=== PATIENT | female | born 1950 | race Caucasian/White ===

== ENCOUNTER 2017-08-19 18:10 | Emergency (ER) | payer MEDICARE ==
[~2017-08-19] VITALS: Ht 162.6 cm; Wt 70.1 kg
[~2017-08-19 18:10] MED LIST: ASPI-1053 PO; DULO-31 PO; KEPPRA PO; METO-539 PO; PRAV10TA PO
[2017-08-19] MEDS ORDERED: FISH12002 PO (19:26)
[2017-08-19] MEDS ORDERED: MULT-38 PO (19:26)
[2017-08-19] MEDS ORDERED: normal saline 1000ML IV soln IVB ONE (19:45)
[2017-08-19] MEDS ORDERED: ondansetron/PF 4mg/2ml inj IV ONE (19:45)
[2017-08-19] MEDS ORDERED: famotidine/PF 10 mg/ml inj IV ONE (19:45)
[2017-08-19 20:03] LABS: BASOPHILS % (AUTO) 0.4 % (0-1); EOSINOPHILS # (AUTO) 0.4 X10'3 (0-0.9); EOSINOPHILS % (AUTO) 4.5 % (0-6); HEMATOCRIT 38.7 % (35.0-45.0); HEMOGLOBIN 13.8 g/dl (12.0-16.0); LYMPHOCYTES % (AUTO) 23.2 % (21-51); MEAN CORPUSCULAR HEMOGLOBIN 31.1 PG (27.0-31.0); MEAN CORPUSCULAR HGB CONC 35.7 % (33.0-36.5); MEAN CORPUSCULAR VOLUME 87.3 FL (78-98); MEAN PLATELET VOLUME 8.1 FL (7.4-10.4); MONOCYTES # (AUTO) 0.6 X10'3 (0-0.9); MONOCYTES % (AUTO) 6.6 % (2-12); NEUTROPHILS # (AUTO) 5.8 X10'3 (1.8-7.7); NEUTROPHILS % (AUTO) 65.3 % (42-75); PLATELET COUNT 247 X10'3 (140-440); RED BLOOD COUNT 4.44 X10'6 (4.20-5.60); RED CELL DISTRIBUTION WIDTH 12.9 % (11.5-14.5); WHITE BLOOD COUNT 8.8 X10'3 (4.5-11.0)
[2017-08-19 20:14] LABS: ALANINE AMINOTRANSFERASE 21 U/L (12-78); ALBUMIN 3.6 G/DL (3.4-5.0); ALBUMIN/GLOBULIN RATIO 1.3 (1.1-1.5); ALKALINE PHOSPHATASE 105 IU/L (46-116); ANION GAP 7 (8-16); ASPARTATE AMINO TRANSFERASE 18 U/L (10-37); BILIRUBIN,TOTAL 0.4 MG/DL (0.1-1.0); BLOOD UREA NITROGEN 25 MG/DL (7-18); BUN/CREATININE RATIO 35.7 (6.6-38.0); CALCIUM 8.7 MG/DL (8.5-10.1); CHLORIDE 109 MMOL/L (99-107); GLUCOSE 105 MG/DL (70-104); LIPASE 139 U/L (73-393); SODIUM 141 MMOL/L (135-145); TOTAL CARBON DIOXIDE 25.4 MMOL/L (24-32); TOTAL PROTEIN 6.3 G/DL (6.4-8.2); eGFR 84 ML/MIN
[2017-08-19 20:19] LABS: POTASSIUM 3.9 MMOL/L (3.5-5.1)
[2017-08-19 21:09] LABS: CLARITY,URINE Clear (Clear); COLOR,URINE Yellow (Yellow); GLUCOSE, URINE Negative (Neg); KETONES,URINE Negative (Neg); LEUKOCYTE ESTERASE ,URINE Moderate (Neg); NITRITES, URINE Negative (Neg); OCCULT BLOOD,URINE Negative (Neg); PROTEIN,URINE Negative (Neg)
[2017-08-19 21:10] LABS: UA COLLECTION TYPE CLN CATCH MIDSTREAM
[2017-08-19 21:22] LABS: BACTERIA,URINE 2+ /HPF (Neg); MUCUS STRANDS NONE SEEN /LPF (Neg); RBC,URINE 0-2 /HPF (0-2); SQUAMOUS EPITHELIAL CELL,UR MODERATE /LPF (FEW)
[2017-08-19] MEDS ORDERED: GOLYS PO (21:42)
[2017-08-19] MEDS ORDERED: magnesium citrate 296ml oral solution PO ONE (21:45)
[2017-08-19 23:08] VITALS: BP 147/75
== END 2017-08-19 23:11 | disposition home or self-care (01) ==
LOC: ER 18:10
DX: K59.00 Constipation, unspecified (principal); R33.9 Retention of urine, unspecified; I25.10 Atherosclerotic heart disease of native coronary artery without angina pectoris; I10 Essential (primary) hypertension; Z87.891 Personal history of nicotine dependence; Z88.6 Allergy status to analgesic agent; Z79.82 Long term (current) use of aspirin; Z95.1 Presence of aortocoronary bypass graft
CPT/HCPCS: 36415; 51702; 71045; 74018; 80053; 81001; 83690; 84484; 85025; 87088; 96361; 96374; 96375; 99285; A4315; J2405; J3490; J7030

== ENCOUNTER 2017-08-20 18:39 | Emergency (ER) | payer MEDICARE ==
[~2017-08-20] VITALS: Ht 162.6 cm; Wt 69.0 kg
[~2017-08-20 18:39] MED LIST changes: -DULO-31 PO; +FISH12002 PO; +GOLYS PO; +MULT-38 PO
[2017-08-21 00:26] LABS: CLARITY,URINE CLOUDY (Clear); COLOR,URINE RED (Yellow); GLUCOSE, URINE NEGATIVE (Neg); KETONES,URINE NEGATIVE (Neg); LEUKOCYTE ESTERASE ,URINE TRACE (Neg); NITRITES, URINE NEGATIVE (Neg); OCCULT BLOOD,URINE LARGE (Neg); PH,URINE 8.5 (4.8-8.0); PROTEIN,URINE 100 mg/dl (Neg)
[2017-08-21 00:44] LABS: UA COLLECTION TYPE CLN CATCH MIDSTREAM
[2017-08-21 00:53] LABS: BACTERIA,URINE FEW /HPF (Neg); MUCUS STRANDS FEW /LPF (Neg); RBC,URINE TNTC /HPF (0-2); SQUAMOUS EPITHELIAL CELL,UR FEW /LPF (FEW)
[2017-08-21 00:54] LABS: HYALINE CASTS 0-3 /LPF (NEGATIVE)
[2017-08-21 01:03] VITALS: BP 126/66
== END 2017-08-21 01:05 | disposition home or self-care (01) ==
LOC: ER 18:40
DX: K59.00 Constipation, unspecified (principal); R33.9 Retention of urine, unspecified; I25.10 Atherosclerotic heart disease of native coronary artery without angina pectoris; I10 Essential (primary) hypertension; Z90.710 Acquired absence of both cervix and uterus; Z95.1 Presence of aortocoronary bypass graft; Z88.5 Allergy status to narcotic agent; Z79.82 Long term (current) use of aspirin; Z79.899 Other long term (current) drug therapy
CPT/HCPCS: 81001; 87088; 99284

== ENCOUNTER 2019-05-26 09:20 | Inpatient (IN) | payer MEDICARE ==
[~2019-05-26] VITALS: Ht 162.6 cm; Wt 67.8 kg
--- NOTE | 2019-05-26 10:00 | NUR ---
5 PIV ATTEMPTS BY 2 DIFFERENT NURSES. ASKED A 3RF RN TO ATTEMPT FOR PIV ACCESS
[2019-05-26 10:09] LABS: BASOPHILS # (AUTO) 0.1 X10'3 (0-0.2); BASOPHILS % (AUTO) 0.4 % (0-1); EOSINOPHILS % (AUTO) 0.1 % (0-6); MONOCYTES # (AUTO) 0.8 X10'3 (0-0.9)
[2019-05-26 10:11] LABS: HEMATOCRIT 42.6 % (35.0-45.0); HEMOGLOBIN 15.1 g/dl (12.0-16.0); LYMPHOCYTES # (AUTO) 0.9 X10'3 (1.1-4.8); LYMPHOCYTES % (AUTO) 3.7 % (21-51); MEAN CORPUSCULAR HEMOGLOBIN 30.9 PG (27.0-31.0); MEAN CORPUSCULAR HGB CONC 35.5 g/dL (33.0-36.5); MEAN CORPUSCULAR VOLUME 87.1 FL (78-98); MEAN PLATELET VOLUME 8.3 FL (7.4-10.4); MONOCYTES % (AUTO) 3.3 % (2-12); NEUTROPHILS # (AUTO) 23.7 X10'3 (1.8-7.7); NEUTROPHILS % (AUTO) 92.5 % (42-75); PLATELET COUNT 292 X10'3 (140-440); RED BLOOD COUNT 4.88 X10'6 (4.20-5.60); RED CELL DISTRIBUTION WIDTH 12.7 % (11.5-14.5)
[2019-05-26] MEDS ORDERED: normal saline 1000ML IV soln IVB ONE (10:15)
[2019-05-26] MEDS ORDERED: morphine 4 MG/ML inj SYRINge IV ONE ×2 (10:15→13:35)
[2019-05-26] MEDS ORDERED: ondansetron/PF 4mg/2ml inj IV ONE (10:15)
[2019-05-26 10:19] LABS: CLARITY,URINE CLEAR (Clear); COLOR,URINE YELLOW (Yellow); GLUCOSE, URINE NEGATIVE (Neg); KETONES,URINE NEGATIVE (Neg); LEUKOCYTE ESTERASE ,URINE NEGATIVE (Neg); NITRITES, URINE NEGATIVE (Neg); OCCULT BLOOD,URINE SMALL (Neg); PH,URINE 5.5 (4.8-8.0); PROTEIN,URINE NEGATIVE (Neg); UROBILINOGEN,URINE 0.2 E.U/dL (0.2-1.0)
[2019-05-26 10:20] LABS: UA COLLECTION TYPE CLN CATCH MIDSTREAM
[2019-05-26 10:25] LABS: BACTERIA,URINE FEW /HPF (Neg); MUCUS STRANDS NONE SEEN /LPF (Neg); RBC,URINE 0-2 /HPF (0-2); SQUAMOUS EPITHELIAL CELL,UR FEW /LPF (FEW); WBC,URINE 0-4 /HPF (0-4)
[2019-05-26 10:30] LABS: ALANINE AMINOTRANSFERASE 30 U/L (12-78); ALBUMIN 4.2 G/DL (3.4-5.0); ALBUMIN/GLOBULIN RATIO 1.3 (1.1-1.5); ALKALINE PHOSPHATASE 91 IU/L (46-116); AMYLASE 63 U/L (25-115); ANION GAP 10 (8-16); BLOOD UREA NITROGEN 18 MG/DL (7-18); BUN/CREATININE RATIO 26.5 (6.6-38.0); CHLORIDE 104 MMOL/L (99-107); CREATININE 0.68 MG/DL (0.40-0.90); GLUCOSE 103 MG/DL (70-104); LIPASE 293 U/L (73-393); SODIUM 138 MMOL/L (135-145); TOTAL CARBON DIOXIDE 24.3 MMOL/L (24-32); TOTAL PROTEIN 7.4 G/DL (6.4-8.2); eGFR 86 ML/MIN
[2019-05-26 10:31] LABS: ASPARTATE AMINO TRANSFERASE 38 U/L (10-37); POTASSIUM 4.2 MMOL/L (3.5-5.1)
[2019-05-26 10:35] LABS: WHITE BLOOD COUNT 25.7 X10'3 (4.5-11.0)
[2019-05-26 10:36] LABS: TOTAL CELLS COUNTED 100
[2019-05-26 10:37] LABS: PLATELET ESTIMATE NORMAL
--- NOTE | 2019-05-26 10:41 | NUR ---
I WENT TO FIND LOLI BRITO IN FAST TRACK: PATIENT STILL VERY NAUSEATED AND ACTUALLY SQUIRMING IN THE BED. ORDERS RECEIVED
[2019-05-26] MEDS ORDERED: normal saline 1000ML IV soln IV ONE (10:45)
[2019-05-26] MEDS ORDERED: diphenhydrAMINE 50 mg/ml inj IV ONE (10:45)
[2019-05-26] MEDS ORDERED: piperacillin/tazo 3.375gm/50ml 50 ML IV ONE (10:45)
[2019-05-26] MEDS ORDERED: proCHLORperazine 10 MG/2 ml inj IV ONE (10:45)
--- NOTE | 2019-05-26 11:04 | NUR ---
to ct scan
[2019-05-26] MEDS ORDERED: PREMERIN VG (12:44)
[2019-05-26] MEDS ORDERED: TRAZ-251 PO (12:44)
[2019-05-26] MEDS ORDERED: magnesium 2GM in 50ml NS 50 ML IV PRN (13:50)
[2019-05-26] MEDS ORDERED: ondansetron/PF 4mg/2ml inj IV PRN (13:50)
[2019-05-26] MEDS ORDERED: HYDROcodone/acetaminophen 10/325mg tab PO PRN (13:50)
[2019-05-26] MEDS ORDERED: mag hydrox/Alum hydrox/simeth 30ml oral suspension PO PRN (13:50)
[2019-05-26] MEDS ORDERED: HYDROcodone/acetaminophen 5mg/325mg tablet PO PRN (13:50)
[2019-05-26] MEDS: K and/or MAG REPLACEMENT MC SCH (13:50)
[2019-05-26] MEDS ORDERED: potassium Cl 20 mEq SR tablet PO PRN ×2 (13:50)
[2019-05-26] MEDS ORDERED: bisacodyl 10mg suppository rectal RC PRN (13:50)
[2019-05-26] MEDS ORDERED: magnesium hydroxide 30ml (MOM) UD suspension PO PRN (13:50)
[2019-05-26] MEDS ORDERED: magnesium Cl slow-release 64mg tablet PO PRN (13:50)
[2019-05-26] MEDS ORDERED: magnesium 4gm in 100ml NS 100 ML IV PRN (13:50)
[2019-05-26] MEDS ORDERED: acetaminophen 650mg rectal suppository RC PRN (13:50)
[2019-05-26] MEDS ORDERED: potassium CL 10mEq/100ml bag 100 ML IV PRN ×2 (13:50)
[2019-05-26] MEDS ORDERED: diphenhydrAMINE 25mg capsule PO PRN (13:50)
[2019-05-26] MEDS ORDERED: acetaminophen 325mg tablet PO PRN ×2 (13:50)
[2019-05-26] MEDS ORDERED: metoclopramide 5 mg/ml inj IV PRN (13:50)
[2019-05-26] MEDS ORDERED: morphine 2 MG/ML inj. syringe IV PRN (13:50)
--- NOTE | 2019-05-26 13:50 | NUR ---
patient asking for the morphine that the dr ordered. no morphine was ordered. I spoke with LOLI harris and order received for 3 mg morphine
[2019-05-26] MEDS: dextrose 5%-normal saline 1,000 ML IV SCH (14:14)
--- NOTE | 2019-05-26 14:15 | NUR ---
Patient in room ED 9. I have received report from Hyacinth in ED and had the opportunity to ask questions and assume patient care.
--- NOTE | 2019-05-26 14:28 | NUR ---
pt arrived on the floor, placed in 5639M, tucked in
[2019-05-26] MEDS ORDERED: metroNIDAZOLE-Flagyl 500mg/NS 100 ML IV SCH ×2 (14:50→15:23)
[2019-05-26 15:28] VITALS: BP 117/49
[2019-05-26] MEDS: levoFLOXACIN-Levaquin 750MG/D5 150 ML IV SCH (15:36)
[2019-05-26] MEDS ORDERED: PRAV20TA4 PO (15:58)
[2019-05-26] MEDS: metroNIDAZOLE-Flagyl 500mg/NS 100 ML IV SCH (17:18)
[2019-05-26] MEDS: morphine 2 MG/ML inj. syringe IV PRN ×2 (17:19→21:15)
[2019-05-26 18:00] VITALS: BP 106/51
--- NOTE | 2019-05-26 18:22 | NUR ---
Problems reprioritized. Patient report given, questions answered & plan of care reviewed with Fam.
[2019-05-26] MEDS: docusate sod 100mg capsule PO SCH (20:47)
[2019-05-26] MEDS: heparin, porcine 5000 units/ml vial SQ SCH (20:47)
[2019-05-26] MEDS: traZODone 50mg tablet PO SCH (20:48)
[2019-05-26] MEDS ORDERED: temazepam 15mg capsule PO PRN (21:00)
[2019-05-26] MEDS: diatr meglu/diatrizoate 30ml oral sol.-(3 dose) bottle PO SCH (21:15)
[2019-05-26 22:00] VITALS: BP 98/40
[2019-05-26] MEDS ORDERED: pantoprazole 40 MG vial IV ONE (23:40)
[2019-05-27] MEDS: metroNIDAZOLE-Flagyl 500mg/NS 100 ML IV SCH ×3 (00:14→15:54)
[2019-05-27] MEDS: morphine 2 MG/ML inj. syringe IV PRN ×4 (03:33→15:54)
[2019-05-27] MEDS: dextrose 5%-normal saline 1,000 ML IV SCH ×3 (03:43→17:52)
--- NOTE | 2019-05-27 06:00 | NUR ---
Patient in room ORTHO 4015. I have received report from Fam and had the opportunity to ask questions and assume patient care.
--- NOTE | 2019-05-27 06:09 | NUR ---
Problems reprioritized. Patient report given, questions answered & plan of care reviewed with Chantelle MARADIAGA.
[2019-05-27 06:24] LABS: BASOPHILS % (AUTO) 0.2 % (0-1); EOSINOPHILS # (AUTO) 0.1 X10'3 (0-0.9); EOSINOPHILS % (AUTO) 0.4 % (0-6); HEMATOCRIT 32.9 % (35.0-45.0); HEMOGLOBIN 11.7 g/dl (12.0-16.0); LYMPHOCYTES # (AUTO) 1.2 X10'3 (1.1-4.8); LYMPHOCYTES % (AUTO) 10.2 % (21-51); MEAN CORPUSCULAR HEMOGLOBIN 31.4 PG (27.0-31.0); MEAN CORPUSCULAR HGB CONC 35.5 g/dL (33.0-36.5); MEAN CORPUSCULAR VOLUME 88.3 FL (78-98); MONOCYTES # (AUTO) 0.8 X10'3 (0-0.9); MONOCYTES % (AUTO) 6.2 % (2-12); NEUTROPHILS # (AUTO) 10.1 X10'3 (1.8-7.7); PLATELET COUNT 178 X10'3 (140-440); RED BLOOD COUNT 3.73 X10'6 (4.20-5.60); RED CELL DISTRIBUTION WIDTH 12.6 % (11.5-14.5); WHITE BLOOD COUNT 12.2 X10'3 (4.5-11.0)
[2019-05-27 06:33] VITALS: BP 100/47
[2019-05-27 06:35] LABS: ALANINE AMINOTRANSFERASE 17 U/L (12-78); ALBUMIN 2.7 G/DL (3.4-5.0); ALKALINE PHOSPHATASE 58 IU/L (46-116); ANION GAP 8 (8-16); ASPARTATE AMINO TRANSFERASE 17 U/L (10-37); BILIRUBIN,TOTAL 1.1 MG/DL (0.1-1.0); BLOOD UREA NITROGEN 12 MG/DL (7-18); BUN/CREATININE RATIO 18.5 (6.6-38.0); CHLORIDE 109 MMOL/L (99-107); CHOL/HDL RATIO 2.7 (0.00-4.99); CHOLESTEROL 94 MG/DL (0-200); CREATININE 0.65 MG/DL (0.40-0.90); GLUCOSE 91 MG/DL (70-104); HDL CHOLESTEROL 35 MG/DL (35-60); LDL CHOLESTEROL 50 MG/DL (50-100); LIPASE 352 U/L (73-393); MAGNESIUM 1.6 MG/DL (1.5-2.4); PHOSPHORUS 2.4 MG/DL (2.3-4.5); POTASSIUM 3.7 MMOL/L (3.5-5.1); SODIUM 140 MMOL/L (135-145); TOTAL CARBON DIOXIDE 23.2 MMOL/L (24-32); TOTAL PROTEIN 5.4 G/DL (6.4-8.2); TRIGLYCERIDES 91 MG/DL (20-135); eGFR > 90 ML/MIN
[2019-05-27] MEDS: diatr meglu/diatrizoate 30ml oral sol.-(3 dose) bottle PO SCH ×2 (07:05→10:37)
[2019-05-27] MEDS: pantoprazole 40 MG vial IV SCH ×2 (07:18→20:29)
[2019-05-27] MEDS ORDERED: PREMERIN VG SCH (08:00)
[2019-05-27] MEDS: docusate sod 100mg capsule PO SCH ×2 (08:00→20:00)
[2019-05-27] MEDS: aspirin 81mg tab.chew PO SCH (08:00)
[2019-05-27] MEDS: multivitamins, therapeutics tablet PO SCH (08:00)
[2019-05-27] MEDS: metoprolol succinate 25mg (24-HOUR) SR. Tablet PO SCH (08:00)
[2019-05-27] MEDS: K and/or MAG REPLACEMENT MC SCH (08:00)
[2019-05-27] MEDS: atorvastatin 20mg tablet PO SCH (08:00)
[2019-05-27] MEDS: OMEGA-3/DHA/EPA/FISH OIL 1 EACH CAPSULE.DR PO SCH (08:00)
[2019-05-27] MEDS: levoFLOXACIN-Levaquin 750MG/D5 150 ML IV SCH (08:30)
[2019-05-27] MEDS: heparin, porcine 5000 units/ml vial SQ SCH ×2 (09:28→20:30)
[2019-05-27 10:00] VITALS: BP 112/58
[2019-05-27] MEDS ORDERED: iohexol 300mg/ml 100ml inj. ONE (10:36)
[2019-05-27 18:00] VITALS: BP 101/53
--- NOTE | 2019-05-27 18:14 | NUR ---
Problems reprioritized. Patient report given, questions answered & plan of care reviewed with Fadia.
--- NOTE | 2019-05-27 19:21 | NUR ---
Spoke with Dr. Rojo r/t pt is NPO for poss duodenal perforation, and is unable to take her HS trazodone. Rec'd one time order for Ativan 0.5mg IV at HS.
[2019-05-27] MEDS ORDERED: LORazepam 2 mg/ml vial IV ONE (19:25)
[2019-05-27] MEDS: traZODone 50mg tablet PO SCH (20:40)
[2019-05-27 22:00] VITALS: BP 114/52
[2019-05-28] MEDS: metroNIDAZOLE-Flagyl 500mg/NS 100 ML IV SCH ×3 (00:34→16:11)
[2019-05-28] MEDS: dextrose 5%-normal saline 1,000 ML IV SCH ×3 (04:03→23:51)
[2019-05-28 06:00] VITALS: BP 122/77
--- NOTE | 2019-05-28 06:27 | NUR ---
REPORT GIVEN TO HIREN LONG.
--- NOTE | 2019-05-28 06:30 | NUR ---
Patient in room ORTHO 4015. I have received report from HIREN Loaiza and had the opportunity to ask questions and assume patient care.
--- NOTE | 2019-05-28 06:30 | NUR ---
Patient in room ORTHO 4015. I have received report from HIREN Loaiza and had the opportunity to ask questions and assume patient care.
[2019-05-28 07:01] LABS: BASOPHILS % (AUTO) 0.2 % (0-1); EOSINOPHILS # (AUTO) 0.2 X10'3 (0-0.9); EOSINOPHILS % (AUTO) 2.6 % (0-6); HEMATOCRIT 32.7 % (35.0-45.0); HEMOGLOBIN 11.8 g/dl (12.0-16.0); LYMPHOCYTES # (AUTO) 0.7 X10'3 (1.1-4.8); LYMPHOCYTES % (AUTO) 8.1 % (21-51); MEAN CORPUSCULAR HEMOGLOBIN 31.6 PG (27.0-31.0); MEAN CORPUSCULAR HGB CONC 36.1 g/dL (33.0-36.5); MEAN CORPUSCULAR VOLUME 87.5 FL (78-98); MEAN PLATELET VOLUME 8.3 FL (7.4-10.4); MONOCYTES # (AUTO) 0.6 X10'3 (0-0.9); MONOCYTES % (AUTO) 6.8 % (2-12); NEUTROPHILS # (AUTO) 7.1 X10'3 (1.8-7.7); NEUTROPHILS % (AUTO) 82.3 % (42-75); PLATELET COUNT 162 X10'3 (140-440); RED BLOOD COUNT 3.73 X10'6 (4.20-5.60); RED CELL DISTRIBUTION WIDTH 12.9 % (11.5-14.5); WHITE BLOOD COUNT 8.6 X10'3 (4.5-11.0)
[2019-05-28 07:12] LABS: ALANINE AMINOTRANSFERASE 14 U/L (12-78); ALBUMIN 2.7 G/DL (3.4-5.0); ALBUMIN/GLOBULIN RATIO 0.9 (1.1-1.5); ALKALINE PHOSPHATASE 60 IU/L (46-116); ANION GAP 9 (8-16); ASPARTATE AMINO TRANSFERASE 14 U/L (10-37); BLOOD UREA NITROGEN 11 MG/DL (7-18); CALCIUM 8.3 MG/DL (8.5-10.1); CHLORIDE 109 MMOL/L (99-107); CREATININE 0.58 MG/DL (0.40-0.90); GLUCOSE 93 MG/DL (70-104); LIPASE 360 U/L (73-393); MAGNESIUM 1.7 MG/DL (1.5-2.4); PHOSPHORUS 2.4 MG/DL (2.3-4.5); POTASSIUM 3.3 MMOL/L (3.5-5.1); SODIUM 140 MMOL/L (135-145); TOTAL CARBON DIOXIDE 22.4 MMOL/L (24-32); TOTAL PROTEIN 5.8 G/DL (6.4-8.2); eGFR > 90 ML/MIN
[2019-05-28] MEDS: pantoprazole 40 MG vial IV SCH ×2 (07:58→20:55)
[2019-05-28] MEDS: morphine 2 MG/ML inj. syringe IV PRN (07:58)
[2019-05-28] MEDS: OMEGA-3/DHA/EPA/FISH OIL 1 EACH CAPSULE.DR PO SCH (08:00)
[2019-05-28] MEDS: multivitamins, therapeutics tablet PO SCH (08:00)
[2019-05-28] MEDS: atorvastatin 20mg tablet PO SCH (08:00)
[2019-05-28] MEDS: metoprolol succinate 25mg (24-HOUR) SR. Tablet PO SCH (08:00)
[2019-05-28] MEDS: K and/or MAG REPLACEMENT MC SCH (08:00)
[2019-05-28] MEDS: docusate sod 100mg capsule PO SCH ×2 (08:00→20:00)
[2019-05-28] MEDS: aspirin 81mg tab.chew PO SCH (08:00)
[2019-05-28] MEDS: heparin, porcine 5000 units/ml vial SQ SCH ×2 (08:06→20:55)
[2019-05-28] MEDS: levoFLOXACIN-Levaquin 750MG/D5 150 ML IV SCH (09:19)
[2019-05-28 10:00] VITALS: BP 113/59
[2019-05-28] MEDS ORDERED: POTASSIUM BICARB 20meq eff tab 20 MEQ TABLET.EFF PO PRN (12:30)
[2019-05-28 12:39] LABS: H PYLORI ANTIBODY NEGATIVE (Neg)
[2019-05-28] MEDS: POTASSIUM BICARB 20meq eff tab 20 MEQ TABLET.EFF PO PRN ×2 (13:19→20:56)
[2019-05-28 18:00] VITALS: BP 140/77
--- NOTE | 2019-05-28 18:35 | NUR ---
Problems reprioritized. Patient report given, questions answered & plan of care reviewed with HIREN Loaiza.
[2019-05-28] MEDS: traZODone 50mg tablet PO SCH (20:56)
[2019-05-28] MEDS: lactobacillus rhamnosus 10,000 MMU CELLS/CAPSULE PO SCH (20:56)
[2019-05-28 22:00] VITALS: BP 136/65
[2019-05-29] MEDS: metroNIDAZOLE-Flagyl 500mg/NS 100 ML IV SCH ×2 (00:36→07:37)
[2019-05-29] MEDS: POTASSIUM BICARB 20meq eff tab 20 MEQ TABLET.EFF PO PRN (00:36)
--- NOTE | 2019-05-29 06:08 | NUR ---
REPORT GIVEN TO HIREN LONG.
--- NOTE | 2019-05-29 06:10 | NUR ---
Patient in room ORTHO 4015. I have received report from HIREN Loaiza and had the opportunity to ask questions and assume patient care.
[2019-05-29 06:45] VITALS: BP 123/65
[2019-05-29 06:56] LABS: BASOPHILS % (AUTO) 0.4 % (0-1); EOSINOPHILS # (AUTO) 0.3 X10'3 (0-0.9); EOSINOPHILS % (AUTO) 4.1 % (0-6); HEMATOCRIT 32.4 % (35.0-45.0); HEMOGLOBIN 11.6 g/dl (12.0-16.0); LYMPHOCYTES # (AUTO) 0.8 X10'3 (1.1-4.8); LYMPHOCYTES % (AUTO) 12.5 % (21-51); MEAN CORPUSCULAR HEMOGLOBIN 31.4 PG (27.0-31.0); MEAN CORPUSCULAR HGB CONC 35.9 g/dL (33.0-36.5); MEAN CORPUSCULAR VOLUME 87.3 FL (78-98); MEAN PLATELET VOLUME 8.3 FL (7.4-10.4); MONOCYTES # (AUTO) 0.4 X10'3 (0-0.9); MONOCYTES % (AUTO) 6.6 % (2-12); NEUTROPHILS # (AUTO) 5.1 X10'3 (1.8-7.7); NEUTROPHILS % (AUTO) 76.4 % (42-75); PLATELET COUNT 190 X10'3 (140-440); RED BLOOD COUNT 3.71 X10'6 (4.20-5.60); RED CELL DISTRIBUTION WIDTH 12.6 % (11.5-14.5); WHITE BLOOD COUNT 6.7 X10'3 (4.5-11.0)
[2019-05-29 07:09] LABS: ALANINE AMINOTRANSFERASE 19 U/L (12-78); ALBUMIN 2.7 G/DL (3.4-5.0); ALBUMIN/GLOBULIN RATIO 0.8 (1.1-1.5); ANION GAP 13 (8-16); ASPARTATE AMINO TRANSFERASE 22 U/L (10-37); BILIRUBIN,TOTAL 0.6 MG/DL (0.1-1.0); BLOOD UREA NITROGEN 6 MG/DL (7-18); BUN/CREATININE RATIO 9.4 (6.6-38.0); CALCIUM 8.3 MG/DL (8.5-10.1); CHLORIDE 108 MMOL/L (99-107); CREATININE 0.64 MG/DL (0.40-0.90); GLUCOSE 128 MG/DL (70-104); LIPASE 399 U/L (73-393); MAGNESIUM 1.8 MG/DL (1.5-2.4); PHOSPHORUS 2.7 MG/DL (2.3-4.5); POTASSIUM 3.5 MMOL/L (3.5-5.1); SODIUM 141 MMOL/L (135-145); eGFR > 90 ML/MIN
[2019-05-29 07:28] LABS: ALKALINE PHOSPHATASE 48 IU/L (46-116)
[2019-05-29] MEDS: pantoprazole 40 MG vial IV SCH (07:37)
[2019-05-29] MEDS: aspirin 81mg tab.chew PO SCH (07:38)
[2019-05-29] MEDS: lactobacillus rhamnosus 10,000 MMU CELLS/CAPSULE PO SCH (07:39)
[2019-05-29] MEDS: atorvastatin 20mg tablet PO SCH (07:39)
[2019-05-29] MEDS: OMEGA-3/DHA/EPA/FISH OIL 1 EACH CAPSULE.DR PO SCH (07:39)
[2019-05-29] MEDS: multivitamins, therapeutics tablet PO SCH (07:39)
[2019-05-29] MEDS: metoprolol succinate 25mg (24-HOUR) SR. Tablet PO SCH (07:40)
[2019-05-29] MEDS: heparin, porcine 5000 units/ml vial SQ SCH (07:42)
[2019-05-29] MEDS: docusate sod 100mg capsule PO SCH (08:00)
[2019-05-29] MEDS: K and/or MAG REPLACEMENT MC SCH (08:00)
[2019-05-29 08:49] LABS: PLATELET ESTIMATE NORMAL; POLYCHROMASIA FEW; SPHEROCYTES FEW
[2019-05-29] MEDS: levoFLOXACIN-Levaquin 750MG/D5 150 ML IV SCH (09:15)
[2019-05-29 10:14] VITALS: BP 138/63
[2019-05-29] MEDS ORDERED: LEVO500T89 PO (11:46)
[2019-05-29] MEDS ORDERED: METR-159 PO (11:46)
[2019-05-29] MEDS ORDERED: PANT-47 PO (11:47)
--- NOTE | 2019-05-29 13:15 | NUR ---
Received discharge orders from Dr. Molina. IV removed without redness/swelling at IV site. Telemetry dc'd and returned to PCU. Pt discharged via w/c with to private vehicle with .
== END 2019-05-29 13:05 | disposition home or self-care (01) | DRG 871 ==
LOC: ER 09:20 → ED HOLD 14:04 → ORTHO 4S 14:29
PROVIDERS: ADMIT Family Medicine; ATTEND Hospitalist
PROC: BW251ZZ Computerized Tomography (CT Scan) of Chest, Abdomen and Pelvis using Low Osmolar Contrast (ICD-10-PCS; principal; 2019-05-27)
DX: A41.9 Sepsis, unspecified organism (principal); K85.90 Acute pancreatitis without necrosis or infection, unspecified; K26.5 Chronic or unspecified duodenal ulcer with perforation; E78.5 Hyperlipidemia, unspecified; F32.9 Major depressive disorder, single episode, unspecified; I10 Essential (primary) hypertension; I25.10 Atherosclerotic heart disease of native coronary artery without angina pectoris; Z96.652 Presence of left artificial knee joint; F41.9 Anxiety disorder, unspecified; Z88.6 Allergy status to analgesic agent; Z79.82 Long term (current) use of aspirin; Z79.899 Other long term (current) drug therapy; Z82.49 Family history of ischemic heart disease and other diseases of the circulatory system; Z87.891 Personal history of nicotine dependence; Z90.710 Acquired absence of both cervix and uterus; Z95.1 Presence of aortocoronary bypass graft; Z95.5 Presence of coronary angioplasty implant and graft
CPT/HCPCS: 36415; 71045; 71260; 74176; 74177; 80053; 80061; 81001; 82150; 83036; 83605; 83690; 83735; 84100; 84145; 84484; 85025; 86677; 87040; 87081; 93005; 96365; 96375; 97161; 97530; 99285; C9113; G0378; J0780; J1200; J1644; J1956; J2060; J2270; J2405; J2543; J3480; J3490; J7042; Q9963; Q9967

== ENCOUNTER 2019-08-03 08:24 | Day surgery (SDC) | payer MEDICARE ==
[~2019-08-03] VITALS: Ht 162.6 cm; Wt 67.1 kg
[2019-08-03] VITALS (16 sets, daily range): BP systolic 84–144; BP diastolic 44–84
[~2019-08-03 08:24] MED LIST changes: -GOLYS PO; -KEPPRA PO; +PANT-47 PO; -PRAV10TA PO; +PRAV20TA4 PO; +PREMERIN VG; +TRAZ-251 PO
[2019-08-03] MEDS ORDERED: normal saline 1000ml 1,000 ML IV PRN (09:10)
[2019-08-03 09:38] LABS: ALBUMIN 3.7 G/DL (3.4-5.0); ANION GAP 7 (8-16); BLOOD UREA NITROGEN 17 MG/DL (7-18); BUN/CREATININE RATIO 24.3 (6.6-38.0); CALCIUM 8.5 MG/DL (8.5-10.1); CHLORIDE 109 MMOL/L (99-107); GLUCOSE 87 MG/DL (70-104); SODIUM 143 MMOL/L (135-145); TOTAL CARBON DIOXIDE 26.8 MMOL/L (24-32); eGFR 83 ML/MIN
[2019-08-03 09:45] LABS: BASOPHILS # (AUTO) 0.1 X10'3 (0-0.2); EOSINOPHILS # (AUTO) 0.2 X10'3 (0-0.9); EOSINOPHILS % (AUTO) 3.1 % (0-6); HEMATOCRIT 39.8 % (35.0-45.0); HEMOGLOBIN 14.2 g/dl (12.0-16.0); LYMPHOCYTES # (AUTO) 1.6 X10'3 (1.1-4.8); LYMPHOCYTES % (AUTO) 26.1 % (21-51); MEAN CORPUSCULAR HEMOGLOBIN 30.3 PG (27.0-31.0); MEAN CORPUSCULAR HGB CONC 35.8 g/dL (33.0-36.5); MEAN CORPUSCULAR VOLUME 84.6 FL (78-98); MEAN PLATELET VOLUME 8.1 FL (7.4-10.4); MONOCYTES # (AUTO) 0.4 X10'3 (0-0.9); MONOCYTES % (AUTO) 7.1 % (2-12); NEUTROPHILS # (AUTO) 3.9 X10'3 (1.8-7.7); NEUTROPHILS % (AUTO) 62.7 % (42-75); PLATELET COUNT 236 X10'3 (140-440); RED BLOOD COUNT 4.71 X10'6 (4.20-5.60); RED CELL DISTRIBUTION WIDTH 13.2 % (11.5-14.5); WHITE BLOOD COUNT 6.2 X10'3 (4.5-11.0)
[2019-08-03] MEDS ORDERED: midazolam 2 mg/2 ml injection IV PRN (10:30)
[2019-08-03] MEDS ORDERED: LIDOcaine 1%/PF 5ML 10 MG/ML VIAL SQ ONE (10:30)
[2019-08-03] MEDS ORDERED: fentaNYL/PF 50MCG/1 ML 2ML syringe IV PRN (10:30)
[2019-08-03] MEDS ORDERED: midazolam 2 mg/2 ml injection ONE ×2 (10:47→11:37)
[2019-08-03] MEDS ORDERED: fentaNYL/PF 50MCG/1 ML 2ML syringe ONE ×2 (10:48→11:39)
[2019-08-03] MEDS ORDERED: cefazolin/dext.iso 2gm/100ml 100 ML IV ONE (11:35)
[2019-08-03] MEDS ORDERED: normal saline 1000ml 1,000 ML IV SCH (12:16)
== END 2019-08-03 14:00 | disposition home or self-care (01) ==
LOC: SSTAY O 08:24
PROVIDERS: ATTEND Radiology Vascular & Interventional Radiology
DX: M89.8X5 Other specified disorders of bone, thigh (principal); I10 Essential (primary) hypertension; I25.2 Old myocardial infarction; Z87.891 Personal history of nicotine dependence; Z95.5 Presence of coronary angioplasty implant and graft; Z79.01 Long term (current) use of anticoagulants; Z79.899 Other long term (current) drug therapy
CPT/HCPCS: 20225; 36415; 77012; 80048; 85025; 85610; 99152; 99153; J2250; J3010; J7030

== ENCOUNTER 2020-01-05 04:42 | Emergency (ER) | payer MEDICARE ==
[~2020-01-05] VITALS: Ht 162.6 cm; Wt 68.2 kg
[2020-01-05] MEDS ORDERED: ondansetron/PF 4mg/2ml inj IV ONE (05:05)
[2020-01-05] MEDS ORDERED: aspirin 81mg tab.chew PO ONE (05:05)
[2020-01-05] MEDS ORDERED: nitroGLYCERIN 0.4mg SUBLingual tab SL PRN (05:05)
[2020-01-05] MEDS ORDERED: diazepam inj 5 MG/ML inj. IV ONE (05:15)
[2020-01-05 05:18] LABS: BASOPHILS # (AUTO) 0.1 X10'3 (0-0.2); EOSINOPHILS # (AUTO) 0.3 X10'3 (0-0.9); HEMATOCRIT 42.5 % (35.0-45.0); HEMOGLOBIN 14.9 g/dl (12.0-16.0); LYMPHOCYTES # (AUTO) 1.7 X10'3 (1.1-4.8); MEAN CORPUSCULAR HEMOGLOBIN 31.6 PG (27.0-31.0); MEAN CORPUSCULAR VOLUME 90.3 FL (78-98); MONOCYTES # (AUTO) 0.5 X10'3 (0-0.9); MONOCYTES % (AUTO) 8.3 % (2-12); NEUTROPHILS # (AUTO) 3.9 X10'3 (1.8-7.7); NEUTROPHILS % (AUTO) 60.7 % (42-75); PLATELET COUNT 255 X10'3 (140-440); RED CELL DISTRIBUTION WIDTH 14.2 % (11.5-14.5); WHITE BLOOD COUNT 6.5 X10'3 (4.5-11.0)
--- NOTE | 2020-01-05 05:30 | NUR ---
MARK SUÁREZ RN WASTE 5 MG VALIUM
[2020-01-05 05:38] LABS: ALANINE AMINOTRANSFERASE 25 U/L (12-78); ALBUMIN 3.7 G/DL (3.4-5.0); ALBUMIN/GLOBULIN RATIO 1.4 (1.1-1.5); ALKALINE PHOSPHATASE 92 IU/L (46-116); ANION GAP 10 (8-16); ASPARTATE AMINO TRANSFERASE 23 U/L (10-37); BILIRUBIN,TOTAL 0.8 MG/DL (0.1-1.0); BLOOD UREA NITROGEN 13 MG/DL (7-18); BUN/CREATININE RATIO 15.5 (6.6-38.0); CALCIUM 8.4 MG/DL (8.5-10.1); CHLORIDE 110 MMOL/L (99-107); CREATININE 0.84 MG/DL (0.40-0.90); GLUCOSE 100 MG/DL (70-104); POTASSIUM 3.9 MMOL/L (3.5-5.1); SODIUM 144 MMOL/L (135-145); TOTAL CARBON DIOXIDE 23.6 MMOL/L (24-32); TOTAL PROTEIN 6.4 G/DL (6.4-8.2); eGFR 67 ML/MIN
--- NOTE | 2020-01-05 05:44 | NUR ---
wasted 5mg valium with HIREN Tam. Pt reports left arm pain, back shoulder and neck/face pain. she feel's like she has a pinched nerve. pt denies SOB or chest pain. Pt neuro assessment wnl. Strength equal on 4 extremities. No droopiness noted. PT AOX4. Pt denies numbness or tingling in any of her legs. She has full ROM in all extremities. Dr. Chapa aware of pt's symptoms.
[2020-01-05 08:04] VITALS: BP 127/71
== END 2020-01-05 08:42 | disposition home or self-care (01) ==
LOC: ER 04:42
DX: S16.1XXA Strain of muscle, fascia and tendon at neck level, initial encounter (principal); R07.9 Chest pain, unspecified; M79.10 Myalgia, unspecified site; R11.0 Nausea; I25.10 Atherosclerotic heart disease of native coronary artery without angina pectoris; I10 Essential (primary) hypertension; F41.9 Anxiety disorder, unspecified; F31.9 Bipolar disorder, unspecified; Z87.01 Personal history of pneumonia (recurrent); Z90.710 Acquired absence of both cervix and uterus; Z98.890 Other specified postprocedural states; Z88.5 Allergy status to narcotic agent; Z79.82 Long term (current) use of aspirin; Z79.899 Other long term (current) drug therapy; X58.XXXA Exposure to other specified factors, initial encounter; Y93.89 Activity, other specified; Y92.89 Other specified places as the place of occurrence of the external cause; Y99.8 Other external cause status
CPT/HCPCS: 36415; 71045; 80053; 84484; 85025; 93005; 96374; 96375; 99285; J2405; J3360

== ENCOUNTER 2020-06-14 11:03 | Emergency (ER) | payer MEDICARE ==
[~2020-06-14] VITALS: Ht 162.6 cm; Wt 68.0 kg
[~2020-06-14 11:03] MED LIST changes: -PANT-47 PO; -PREMERIN VG; +VALA500T PO
== END 2020-06-14 13:40 | disposition home or self-care (01) ==
LOC: ER 11:04
DX: U07.1 COVID-19 (principal); I25.10 Atherosclerotic heart disease of native coronary artery without angina pectoris; I10 Essential (primary) hypertension; F41.9 Anxiety disorder, unspecified; F32.9 Major depressive disorder, single episode, unspecified; Z79.899 Other long term (current) drug therapy; Z88.5 Allergy status to narcotic agent
CPT/HCPCS: 71045; 99283

== ENCOUNTER 2020-09-21 14:08 | Emergency (ER) | payer MEDICARE ==
[~2020-09-21] VITALS: Ht 162.6 cm; Wt 68.2 kg
[2020-09-21] MEDS ORDERED: normal saline 1000ML IV soln IVB ONE (15:30)
[2020-09-21] MEDS ORDERED: acetaminophen 325mg tablet PO ONE (15:30)
[2020-09-21 15:57] LABS: BASOPHILS % (AUTO) 0.4 % (0-1); EOSINOPHILS # (AUTO) 0.1 X10'3 (0-0.9); HEMATOCRIT 43.2 % (35.0-45.0); HEMOGLOBIN 15.2 g/dl (12.0-16.0); LYMPHOCYTES # (AUTO) 0.9 X10'3 (1.1-4.8); LYMPHOCYTES % (AUTO) 10.3 % (21-51); MEAN CORPUSCULAR HEMOGLOBIN 31.6 PG (27.0-31.0); MEAN CORPUSCULAR HGB CONC 35.3 g/dL (33.0-36.5); MEAN CORPUSCULAR VOLUME 89.5 FL (78-98); MEAN PLATELET VOLUME 8.3 FL (7.4-10.4); MONOCYTES # (AUTO) 0.5 X10'3 (0-0.9); MONOCYTES % (AUTO) 5.9 % (2-12); NEUTROPHILS # (AUTO) 7.6 X10'3 (1.8-7.7); NEUTROPHILS % (AUTO) 82.4 % (42-75); PLATELET COUNT 239 X10'3 (140-440); RED BLOOD COUNT 4.82 X10'6 (4.20-5.60); RED CELL DISTRIBUTION WIDTH 13.4 % (11.5-14.5); WHITE BLOOD COUNT 9.2 X10'3 (4.5-11.0)
[2020-09-21 16:13] LABS: ALANINE AMINOTRANSFERASE 30 U/L (12-78); ALBUMIN/GLOBULIN RATIO 1.3 (1.1-1.5); ALKALINE PHOSPHATASE 112 IU/L (46-116); ANION GAP 10 (8-16); ASPARTATE AMINO TRANSFERASE 28 U/L (10-37); BILIRUBIN,TOTAL 0.6 MG/DL (0.1-1.0); BLOOD UREA NITROGEN 20 MG/DL (7-18); BUN/CREATININE RATIO 26.7 (6.6-38.0); CALCIUM 9.2 MG/DL (8.5-10.1); CHLORIDE 102 MMOL/L (99-107); CREATININE 0.75 MG/DL (0.40-0.90); GLUCOSE 93 MG/DL (70-104); POTASSIUM 3.8 MMOL/L (3.5-5.1); SODIUM 139 MMOL/L (135-145); TOTAL CARBON DIOXIDE 27.5 MMOL/L (24-32); TOTAL PROTEIN 7.1 G/DL (6.4-8.2); eGFR 77 ML/MIN
[2020-09-21 16:33] LABS: CLARITY,URINE CLEAR (Clear); COLOR,URINE YELLOW (Yellow); GLUCOSE, URINE NEGATIVE (Neg); KETONES,URINE NEGATIVE (Neg); LEUKOCYTE ESTERASE ,URINE NEGATIVE (Neg); NITRITES, URINE NEGATIVE (Neg); OCCULT BLOOD,URINE TRACE-INTACT (Neg); PH,URINE 7.5 (4.8-8.0); PROTEIN,URINE NEGATIVE (Neg); UROBILINOGEN,URINE 0.2 E.U/dL (0.2-1.0)
[2020-09-21 16:36] LABS: UA COLLECTION TYPE CLN CATCH MIDSTREAM
[2020-09-21 16:37] LABS: BACTERIA,URINE NONE SEEN /HPF (Neg); MUCUS STRANDS NONE SEEN /LPF (Neg); RBC,URINE 0-2 /HPF (0-2); SQUAMOUS EPITHELIAL CELL,UR NONE SEEN /LPF (FEW); WBC,URINE NONE SEEN /HPF (0-4)
[2020-09-21 17:12] VITALS: BP 20/146
== END 2020-09-21 17:14 | disposition home or self-care (01) ==
LOC: ER 14:09
DX: R50.9 Fever, unspecified (principal); T50.Z95A Adverse effect of other vaccines and biological substances, initial encounter; I25.10 Atherosclerotic heart disease of native coronary artery without angina pectoris; I10 Essential (primary) hypertension; K21.9 Gastro-esophageal reflux disease without esophagitis; F41.9 Anxiety disorder, unspecified; F32.9 Major depressive disorder, single episode, unspecified; Z87.440 Personal history of urinary (tract) infections; Z87.11 Personal history of peptic ulcer disease; Z90.710 Acquired absence of both cervix and uterus; Z98.890 Other specified postprocedural states; Z88.5 Allergy status to narcotic agent; Z79.82 Long term (current) use of aspirin; Z79.2 Long term (current) use of antibiotics; Z79.899 Other long term (current) drug therapy; Y92.89 Other specified places as the place of occurrence of the external cause
CPT/HCPCS: 36415; 71045; 80053; 81001; 83605; 85025; 87040; 93005; 99285; J7030; 96360

== ENCOUNTER 2020-11-21 11:47 | Outpatient (CLI) | payer MEDICARE ==
[2020-11-21] VITALS (21 sets, daily range): BP systolic 91–168; BP diastolic 31–100
== END 2020-11-21 23:59 | disposition home or self-care (01) ==
LOC: CARD DIAG 11:47
PROVIDERS: ATTEND Internal Medicine Cardiovascular Disease
DX: R42 Dizziness and giddiness (principal)
CPT/HCPCS: 93660

== ENCOUNTER 2021-03-28 05:49 | Day surgery (SDC) | payer MEDICARE ==
[2021-03-21 15:17] LABS: BASOPHILS # (AUTO) 0.1 X10'3 (0-0.2); BASOPHILS % (AUTO) 0.7 % (0-1); EOSINOPHILS # (AUTO) 0.2 X10'3 (0-0.9); EOSINOPHILS % (AUTO) 2.9 % (0-6); LYMPHOCYTES # (AUTO) 1.8 X10'3 (1.1-4.8); LYMPHOCYTES % (AUTO) 21.3 % (21-51); MEAN CORPUSCULAR HGB CONC 35.5 g/dL (33.0-36.5); MEAN CORPUSCULAR VOLUME 89.9 FL (78-98); MEAN PLATELET VOLUME 8.2 FL (7.4-10.4); MONOCYTES # (AUTO) 0.6 X10'3 (0-0.9); MONOCYTES % (AUTO) 7.1 % (2-12); NEUTROPHILS # (AUTO) 5.7 X10'3 (1.8-7.7); PRE OP HEMATOCRIT 44.1 % (35.0-45.0); PRE OP HEMOGLOBIN 15.7 g/dL (12.0-16.0); PRE OP PLATELET COUNT 285 X10'3 (140-440); RED CELL DISTRIBUTION WIDTH 13.4 % (11.5-14.5)
[2021-03-21 15:25] LABS: CLARITY,URINE CLEAR (Clear); COLOR,URINE YELLOW (Yellow); GLUCOSE, URINE NEGATIVE (Neg); KETONES,URINE TRACE mg/dl (Neg); LEUKOCYTE ESTERASE ,URINE NEGATIVE (Neg); NITRITES, URINE NEGATIVE (Neg); OCCULT BLOOD,URINE SMALL (Neg); PROTEIN,URINE NEGATIVE (Neg); UROBILINOGEN,URINE 0.2 E.U/dL (0.2-1.0)
[2021-03-21 15:27] LABS: UA COLLECTION TYPE CLN CATCH MIDSTREAM
[2021-03-21 15:30] LABS: BACTERIA,URINE FEW /HPF (Neg); MUCUS STRANDS MODERATE /LPF (Neg); RBC,URINE 0-2 /HPF (0-2); SQUAMOUS EPITHELIAL CELL,UR FEW /LPF (FEW); WBC,URINE 0-4 /HPF (0-4)
[2021-03-21 15:37] LABS: ALBUMIN 4.1 G/DL (3.4-5.0); ALBUMIN/GLOBULIN RATIO 1.4 (1.1-1.5); ALKALINE PHOSPHATASE 115 IU/L (46-116); BLOOD UREA NITROGEN 16 MG/DL (7-18); BUN/CREATININE RATIO 17.8 (6.6-38.0); CALCIUM 8.3 MG/DL (8.5-10.1); CHLORIDE 108 MMOL/L (99-107); PRE OP ALT 26 U/L (30-65); PRE OP ANION GAP 11 (8-16); PRE OP AST 24 U/L (10-37); PRE OP BILIRUB, TOTAL 0.5 MG/DL (0.0-1.0); PRE OP GLUCOSE 101 MG/DL (70-104); PRE OP POTASSIUM 3.5 MMOL/L (3.4-5.1); PRE OP SODIUM 144 MMOL/L (135-145); TOTAL CARBON DIOXIDE 25.4 MMOL/L (24-32); eGFR 62 ML/MIN
[~2021-03-28] VITALS: Ht 162.6 cm; Wt 68.0 kg
[2021-03-28] VITALS (8 sets, daily range): BP systolic 124–160; BP diastolic 66–81
[~2021-03-28 05:49] MED LIST changes: -ASPI-1053 PO; +CALCIUM MAGNESIUM PO; +DOCUMENT DATE & TIME OF BETA-BLOCKER PO ONE; +MILK OF MAGNESIA PO; +MV M PO; +OMEP40CA21 PO; +VITAMIN D 3 PO; +ZINC PO; +cefazolin/dext.iso 2gm/100ml IV ONE; +famotidine 20mg tablet PO ONE; +ringers solution, lacted 1,000 ML IV SCH
[2021-03-28] MEDS ORDERED: LIDOcaine 1% (10mg/ml) 2ml vial ONE (05:59)
[2021-03-28] MEDS ORDERED: sevoflurane 250ml liquid IH ONE (08:01)
[2021-03-28] MEDS ORDERED: LIDOcaine 2% (20mg/ml) 5ml vial ONE (08:06)
[2021-03-28] MEDS ORDERED: midazolam 1 mg/ML 2ml injection ONE (08:06)
[2021-03-28] MEDS ORDERED: propofol inj 20 ML IV ONE (08:06)
[2021-03-28] MEDS ORDERED: fentaNYL/PF 50MCG/1 ML 2ML syringe ONE (08:06)
[2021-03-28] MEDS ORDERED: ROPIVAcaine 0.5% (5mg/ml) 30ml vial ONE ×2 (08:07→08:23)
[2021-03-28] MEDS ORDERED: dexamethasone sod phosphate 4mg/ml inj. ONE (08:07)
[2021-03-28] MEDS ORDERED: ondansetron/PF 4mg/2ml inj ONE (08:23)
[2021-03-28] MEDS ORDERED: morphine 4 MG/ML inj SYRINge IV PRN (08:40)
[2021-03-28] MEDS ORDERED: hydrALAZINE 20mg/ml inj. IV PRN (08:40)
[2021-03-28] MEDS ORDERED: fentaNYL/PF 50MCG/1 ML 2ML syringe IV PRN ×2 (08:40)
[2021-03-28] MEDS ORDERED: morphine 2 MG/ML inj. syringe IV PRN (08:40)
[2021-03-28] MEDS ORDERED: labetalol 20mg/4ml (5mg/ml) syringe IV PRN (08:40)
[2021-03-28] MEDS ORDERED: ringers solution, lacted 1,000 ML IV SCH (08:40)
[2021-03-28] MEDS ORDERED: ondansetron/PF 4mg/2ml inj IV PRN (08:40)
[2021-03-28] MEDS ORDERED: bacitracin 15gm ointment TP ONE (08:47)
--- NOTE | 2021-03-28 11:22 | NUR ---
AWAKE AND ORIENTED. VITALS STABLE. DRESSING DI. ARLEEN PAIN. HOME WITH HER SPOUSE AT THIS TIME.
== END 2021-03-28 11:22 | disposition home or self-care (01) ==
LOC: PAS 05:49
PROVIDERS: ATTEND Podiatrist Foot & Ankle Surgery
DX: M20.12 Hallux valgus (acquired), left foot (principal); M19.072 Primary osteoarthritis, left ankle and foot; M19.071 Primary osteoarthritis, right ankle and foot; M20.42 Other hammer toe(s) (acquired), left foot; G89.18 Other acute postprocedural pain; I10 Essential (primary) hypertension; I25.10 Atherosclerotic heart disease of native coronary artery without angina pectoris; Z79.899 Other long term (current) drug therapy; Z88.5 Allergy status to narcotic agent; Z90.710 Acquired absence of both cervix and uterus; Z98.890 Other specified postprocedural states; Z72.89 Other problems related to lifestyle; Z87.891 Personal history of nicotine dependence; Z79.82 Long term (current) use of aspirin; Z95.5 Presence of coronary angioplasty implant and graft; Z20.822 Contact with and (suspected) exposure to COVID-19
CPT/HCPCS: 20680; 20900; 28285; 28750; 36415; 64447; 64450; 73620; 76000; 80053; 81001; 82948; 85025; 93005; A6223; C1713; J1100; J2001; J2250; J2405; J2704; J3010; U0003; U0005; Z7506; Z7508; Z7512; A4215; A4618; A6449; A7000; J2795; J7120

== ENCOUNTER 2021-08-22 05:22 | Day surgery (SDC) | payer MEDICARE ==
[2021-08-12 10:32] LABS: CLARITY,URINE CLEAR (Clear); GLUCOSE, URINE NEGATIVE (Neg); KETONES,URINE NEGATIVE (Neg); LEUKOCYTE ESTERASE ,URINE NEGATIVE (Neg); NITRITES, URINE NEGATIVE (Neg); OCCULT BLOOD,URINE NEGATIVE (Neg); PROTEIN,URINE NEGATIVE (Neg); UROBILINOGEN,URINE 0.2 E.U/dL (0.2-1.0)
[2021-08-12 10:35] LABS: BASOPHILS % (AUTO) 0.6 % (0-1); EOSINOPHILS # (AUTO) 0.2 X10'3 (0-0.9); EOSINOPHILS % (AUTO) 2.5 % (0-6); LYMPHOCYTES # (AUTO) 1.6 X10'3 (1.1-4.8); LYMPHOCYTES % (AUTO) 22.4 % (21-51); MEAN CORPUSCULAR HEMOGLOBIN 31.5 PG (27.0-31.0); MEAN CORPUSCULAR HGB CONC 34.9 g/dL (33.0-36.5); MEAN CORPUSCULAR VOLUME 90.3 FL (78-98); MEAN PLATELET VOLUME 8.5 FL (7.4-10.4); MONOCYTES # (AUTO) 0.5 X10'3 (0-0.9); MONOCYTES % (AUTO) 6.7 % (2-12); NEUTROPHILS # (AUTO) 4.8 X10'3 (1.8-7.7); NEUTROPHILS % (AUTO) 67.8 % (42-75); PRE OP HEMATOCRIT 41.6 % (35.0-45.0); PRE OP HEMOGLOBIN 14.5 g/dL (12.0-16.0); PRE OP PLATELET COUNT 287 X10'3 (140-440); RED BLOOD COUNT 4.61 X10'6 (4.20-5.60)
[2021-08-12 10:50] LABS: COLOR,URINE STRAW (Yellow); UA COLLECTION TYPE CLN CATCH MIDSTREAM
[2021-08-12 10:50] LABS: ALBUMIN 3.8 G/DL (3.4-5.0); ALBUMIN/GLOBULIN RATIO 1.4 (1.1-1.5); ALKALINE PHOSPHATASE 106 IU/L (46-116); BLOOD UREA NITROGEN 17 MG/DL (7-18); CALCIUM 8.7 MG/DL (8.5-10.1); CHLORIDE 101 MMOL/L (99-107); CREATININE 0.63 MG/DL (0.40-0.90); PRE OP ALT 26 U/L (30-65); PRE OP ANION GAP 7 (8-16); PRE OP AST 24 U/L (10-37); PRE OP BILIRUB, TOTAL 0.7 MG/DL (0.0-1.0); PRE OP GLUCOSE 89 MG/DL (70-104); PRE OP POTASSIUM 3.8 MMOL/L (3.4-5.1); PRE OP SODIUM 133 MMOL/L (135-145); TOTAL CARBON DIOXIDE 25.4 MMOL/L (24-32); TOTAL PROTEIN 6.6 G/DL (6.4-8.2); eGFR > 90 ML/MIN
[~2021-08-22] VITALS: Ht 162.6 cm; Wt 67.9 kg
[2021-08-22] VITALS (8 sets, daily range): BP systolic 130–157; BP diastolic 67–83
[~2021-08-22 05:22] MED LIST changes: +ASPI-1053 PO; -DOCUMENT DATE & TIME OF BETA-BLOCKER PO ONE; -MILK OF MAGNESIA PO; -ZINC PO; -cefazolin/dext.iso 2gm/100ml IV ONE; -famotidine 20mg tablet PO ONE
[2021-08-22] MEDS ORDERED: DOCUMENT DATE & TIME OF BETA-BLOCKER PO ONE (05:30)
[2021-08-22] MEDS ORDERED: cefazolin/dext.iso 2gm/50ml IV ONE (05:30)
[2021-08-22] MEDS ORDERED: famotidine 20mg tablet PO ONE (05:30)
[2021-08-22] MEDS ORDERED: LIDOcaine 1% (10mg/ml) 2ml vial ONE (05:47)
[2021-08-22] MEDS ORDERED: BUPIVAcaine/PF 2.5mg/ml (0.25%) 10ml vial ONE (06:37)
[2021-08-22] MEDS ORDERED: bacitracin 15gm ointment TP ONE (06:37)
[2021-08-22] MEDS ORDERED: cloNIDine hcl/PF 100mcg/ml inj ONE (07:05)
[2021-08-22] MEDS ORDERED: sevoflurane 250ml liquid IH ONE (07:05)
[2021-08-22] MEDS ORDERED: morphine 2 MG/ML inj. syringe IV PRN (07:10)
[2021-08-22] MEDS ORDERED: proCHLORperazine 10 MG/2 ml inj IV PRN (07:10)
[2021-08-22] MEDS ORDERED: labetalol 20mg/4ml (5mg/ml) syringe IV PRN (07:10)
[2021-08-22] MEDS ORDERED: ondansetron/PF 4mg/2ml inj IV PRN (07:10)
[2021-08-22] MEDS ORDERED: acetaminophen 1,000mg/100ml IV 100 ML IV PRN (07:10)
[2021-08-22] MEDS ORDERED: ringers solution, lacted 1,000 ML IV SCH (07:10)
[2021-08-22] MEDS ORDERED: morphine 4 MG/ML inj SYRINge IV PRN (07:10)
[2021-08-22] MEDS ORDERED: hydrALAZINE 20mg/ml inj. IV PRN (07:10)
[2021-08-22] MEDS ORDERED: meperidine/PF 25mg/ml syringe IV PRN ×3 (07:10)
[2021-08-22] MEDS ORDERED: midazolam 1 mg/ML 2ml injection ONE (07:11)
[2021-08-22] MEDS ORDERED: fentaNYL/PF 50MCG/1 ML 2ML syringe ONE (07:21)
[2021-08-22] MEDS ORDERED: ondansetron/PF 4mg/2ml inj ONE (07:50)
[2021-08-22] MEDS ORDERED: propofol inj 20 ML IV ONE (07:50)
[2021-08-22] MEDS ORDERED: LIDOcaine 2% (20mg/ml) 5ml vial ONE (07:50)
[2021-08-22] MEDS ORDERED: dexamethasone sod phosphate 4mg/ml inj. ONE (07:50)
[2021-08-22] MEDS ORDERED: ROPIVAcaine 0.5% (5mg/ml) 30ml vial ONE (07:50)
--- NOTE | 2021-08-22 08:20 | NUR ---
Received from OR via [facility] IN STABLE CONDITION, accompanied by Anesthesiologist and CLEANER AND DYER report given by CLEANER AND DYER AND Anesthesiolgist. Addendum: 08/22/21 at 0828 by Shilpa Gamez RN Amended: Links added.
--- NOTE | 2021-08-22 09:30 | NUR ---
PATIENT DISCHARGED FROM PACU IN STABLE CONDITION AFTER WRITTEN AND VERBAL DISCHARGE INSTRUCTIONS GIVEN. PATIENT GAVE VERBAL UNDERSTANDING OF INSTRUCTIONS GIVEN. PATIENT LEFT FACILITY VIA WHEELCHAIR WITH RN. Addendum: 08/22/21 at 1016 by Shilpa Gamez RN Amended: Links added.
== END 2021-08-22 09:30 | disposition home or self-care (01) ==
LOC: PAS 05:22
PROVIDERS: ATTEND Podiatrist Foot & Ankle Surgery
DX: T84.84XA Pain due to internal orthopedic prosthetic devices, implants and grafts, initial encounter (principal); G89.18 Other acute postprocedural pain; M21.6X2 Other acquired deformities of left foot; M19.072 Primary osteoarthritis, left ankle and foot; I25.10 Atherosclerotic heart disease of native coronary artery without angina pectoris; I10 Essential (primary) hypertension; I47.1 Supraventricular tachycardia; K21.9 Gastro-esophageal reflux disease without esophagitis; F41.9 Anxiety disorder, unspecified; F32.A Depression, unspecified; M19.071 Primary osteoarthritis, right ankle and foot; Z95.5 Presence of coronary angioplasty implant and graft; Z20.822 Contact with and (suspected) exposure to COVID-19; Z79.899 Other long term (current) drug therapy; Z90.710 Acquired absence of both cervix and uterus; Z98.41 Cataract extraction status, right eye; Z98.42 Cataract extraction status, left eye; Z98.890 Other specified postprocedural states; Z87.891 Personal history of nicotine dependence; Z88.5 Allergy status to narcotic agent; Z79.82 Long term (current) use of aspirin; Z72.89 Other problems related to lifestyle
CPT/HCPCS: 20680; 28112; 28113; 28298; 36415; 64450; 73620; 76000; 80053; 81003; 82948; 85025; A6223; C1713; J0131; J0690; J0735; J1100; J2250; J2405; J2704; J2795; J3010; J3490; J7030; J7120; U0003; U0005; Z7506; Z7508; Z7512; A4618; A6253; A6449; A7000

== ENCOUNTER 2022-02-27 09:10 | Day surgery (SDC) | payer MEDICARE ==
[2022-02-23 14:58] LABS: BASOPHILS % (AUTO) 0.5 % (0-1); EOSINOPHILS # (AUTO) 0.3 X10'3 (0-0.9); EOSINOPHILS % (AUTO) 4.2 % (0-6); LYMPHOCYTES % (AUTO) 25.4 % (21-51); MEAN CORPUSCULAR HEMOGLOBIN 31.4 PG (27.0-31.0); MEAN CORPUSCULAR HGB CONC 34.9 g/dL (33.0-36.5); MEAN PLATELET VOLUME 7.7 FL (7.4-10.4); MONOCYTES # (AUTO) 0.6 X10'3 (0-0.9); MONOCYTES % (AUTO) 7.1 % (2-12); NEUTROPHILS # (AUTO) 4.9 X10'3 (1.8-7.7); NEUTROPHILS % (AUTO) 62.8 % (42-75); PRE OP HEMATOCRIT 42.4 % (35.0-45.0); PRE OP HEMOGLOBIN 14.8 g/dL (12.0-16.0); PRE OP PLATELET COUNT 271 X10'3 (140-440); RED BLOOD COUNT 4.71 X10'6 (4.20-5.60); RED CELL DISTRIBUTION WIDTH 13.2 % (11.5-14.5)
[2022-02-23 15:16] LABS: ALBUMIN 3.9 G/DL (3.4-5.0); ALBUMIN/GLOBULIN RATIO 1.3 (1.1-1.5); ALKALINE PHOSPHATASE 105 IU/L (46-116); BLOOD UREA NITROGEN 16 MG/DL (7-18); BUN/CREATININE RATIO 27.1 (6.6-38.0); CALCIUM 8.5 MG/DL (8.5-10.1); CHLORIDE 107 MMOL/L (99-107); CREATININE 0.59 MG/DL (0.40-0.90); PRE OP ALT 19 U/L (30-65); PRE OP ANION GAP 11 (8-16); PRE OP AST 18 U/L (10-37); PRE OP BILIRUB, TOTAL 0.4 MG/DL (0.0-1.0); PRE OP GLUCOSE 101 MG/DL (70-104); PRE OP POTASSIUM 3.6 MMOL/L (3.4-5.1); PRE OP SODIUM 143 MMOL/L (135-145); TOTAL CARBON DIOXIDE 25.1 MMOL/L (24-32); TOTAL PROTEIN 6.9 G/DL (6.4-8.2); eGFR > 90 ML/MIN
[2022-02-23 15:18] LABS: CLARITY,URINE CLEAR (Clear); COLOR,URINE YELLOW (Yellow); GLUCOSE, URINE NEGATIVE (Neg); KETONES,URINE NEGATIVE (Neg); LEUKOCYTE ESTERASE ,URINE NEGATIVE (Neg); NITRITES, URINE NEGATIVE (Neg); OCCULT BLOOD,URINE TRACE-INTACT (Neg); PH,URINE 5.5 (4.8-8.0); PROTEIN,URINE NEGATIVE (Neg); UROBILINOGEN,URINE 0.2 E.U/dL (0.2-1.0)
[2022-02-23 15:21] LABS: UA COLLECTION TYPE CLN CATCH MIDSTREAM
[2022-02-23 15:26] LABS: BACTERIA,URINE NONE SEEN /HPF (Neg); MUCUS STRANDS NONE SEEN /LPF (Neg); RBC,URINE 0-2 /HPF (0-2); SQUAMOUS EPITHELIAL CELL,UR FEW /LPF (FEW); WBC,URINE 0-4 /HPF (0-4)
[~2022-02-27] VITALS: Ht 162.6 cm; Wt 63.3 kg
[2022-02-27] VITALS (9 sets, daily range): BP systolic 132–153; BP diastolic 65–75
[2022-02-27] MEDS: DOCUMENT DATE & TIME OF BETA-BLOCKER PO ONE (05:30)
[~2022-02-27 09:10] MED LIST changes: +BIOT1CAP3 PO; +DOCU-272 PO; +MELA5CAP PO; -ringers solution, lacted 1,000 ML IV SCH
[2022-02-27] MEDS: ringers solution, lacted 1,000 ML IV SCH (09:45)
[2022-02-27] MEDS: famotidine 20mg tablet PO ONE (09:54)
[2022-02-27] MEDS: ceFAZolin 1,000 MG in NS 50ML IVPB IV ONE (09:55)
[2022-02-27] MEDS ORDERED: ceFAZolin 2gm in dextrose, iso 50 ML IV ONE (10:50)
[2022-02-27] MEDS ORDERED: cefazolin/dext.iso 2gm/100ml 50 ML IV ONE (11:11)
[2022-02-27] MEDS ORDERED: ceFAZolin inj. 2,000 MG in normal saline 100ml IV soln 100 ML IV ONE (11:12)
[2022-02-27] MEDS ORDERED: cefazolin/dext.iso 2gm/100ml 100 ML IV ONE (11:14)
[2022-02-27] MEDS ORDERED: LIDOcaine 1% (10mg/ml)w/preservative inj. 20ml MDV ONE (11:51)
[2022-02-27] MEDS ORDERED: sevoflurane 250ml liquid IH ONE (11:51)
[2022-02-27] MEDS ORDERED: fentaNYL/PF 50MCG/1 ML 2ML syringe ONE (11:54)
[2022-02-27] MEDS ORDERED: midazolam 1 mg/ML 2ml injection ONE (11:55)
[2022-02-27] MEDS ORDERED: propofol inj 20 ML IV ONE (11:57)
[2022-02-27] MEDS ORDERED: dexamethasone sod phosphate 4mg/ml inj. ONE (12:31)
[2022-02-27] MEDS ORDERED: ondansetron/PF 4mg/2ml inj ONE (12:32)
--- NOTE | 2022-02-27 12:42 | NUR ---
Received from OR via [facility], accompanied by Anesthesiologist DR EM and report given by Anesthesiologist AND MEDICAL ADMINISTRATIVE. PT AWAKE, NO COMPLAINTS OF PAIN OR DISCOMFORT. LEFT FOOT IN OPEN TOE ORTHOPEDIC SHOE W/THUY WRAP COVERING INCISION/DRSG CDI, PIN IN 3RD TOE INTACT, TOES PWD, REPORTING DEVELOPER 1-2 SECONDS. Addendum: 02/27/22 at 1549 by Shruthi Milton RN Amended: Links added.
[2022-02-27] MEDS: bacitracin 15gm ointment TP ONE (12:45)
[2022-02-27] MEDS: BUPIVAcaine/PF 2.5 mg/ml (0.25%) 30ml vial ONE (12:46)
[2022-02-27] MEDS ORDERED: meperidine/PF 25mg/ml syringe IV PRN ×3 (12:55)
[2022-02-27] MEDS ORDERED: ringers solution, lacted 1,000 ML IV SCH (12:55)
[2022-02-27] MEDS ORDERED: morphine 4 MG/ML inj SYRINge IV PRN (12:55)
[2022-02-27] MEDS ORDERED: ondansetron/PF 4mg/2ml inj IV PRN (12:55)
[2022-02-27] MEDS ORDERED: morphine 2 MG/ML inj. syringe IV PRN (12:55)
[2022-02-27] MEDS ORDERED: proCHLORperazine 10 MG/2 ml inj IV PRN (12:55)
--- NOTE | 2022-02-27 14:22 | NUR ---
PT UP AND ABLE TO PIVOT FROM W/C TO [facility], BED SAFELY. PT VOIDED. D/C INSTRUCTIONS GIVEN AND GONE OVER W/PT WHO VERBALIZED UNDERSTANDING. PT D/CD TO HOME VIA W/C TO PRIVATE VEHICLE W/O INCIDENT. Addendum: 02/27/22 at 1604 by Shruthi Milton RN Amended: Links added.
== END 2022-02-27 14:22 | disposition home or self-care (01) ==
LOC: PAS 09:10
PROVIDERS: ATTEND Podiatrist Foot & Ankle Surgery
DX: M20.42 Other hammer toe(s) (acquired), left foot (principal); M19.90 Unspecified osteoarthritis, unspecified site; K21.9 Gastro-esophageal reflux disease without esophagitis; F32.9 Major depressive disorder, single episode, unspecified; F41.9 Anxiety disorder, unspecified; Z87.891 Personal history of nicotine dependence; Z90.710 Acquired absence of both cervix and uterus
CPT/HCPCS: 28285; 36415; 73620; 80053; 81001; 82948; 85025; 87811; 93005; A6223; C1713; J1100; J2250; J2405; J2704; J3010; J3490; J7030; J7120; Z7506; Z7512; 76000; A4215; A4618; A6253; A6449; A7000

== ENCOUNTER 2022-09-15 12:05 | Observation (INO) | payer MEDICARE ==
[~2022-09-15] VITALS: Ht 162.6 cm; Wt 65.9 kg
[~2022-09-15 12:05] MED LIST changes: -OMEP40CA21 PO
[2022-09-15 12:24] LABS: BASOPHILS # (AUTO) 0.1 X10'3 (0-0.2); BASOPHILS % (AUTO) 0.6 % (0-1); EOSINOPHILS # (AUTO) 0.3 X10'3 (0-0.9); EOSINOPHILS % (AUTO) 4.2 % (0-6); HEMATOCRIT 41.5 % (35.0-45.0); HEMOGLOBIN 14.7 g/dl (12.0-16.0); LYMPHOCYTES # (AUTO) 2.3 X10'3 (1.1-4.8); LYMPHOCYTES % (AUTO) 28.5 % (21-51); MEAN CORPUSCULAR HEMOGLOBIN 32.1 PG (27.0-31.0); MEAN CORPUSCULAR HGB CONC 35.5 g/dL (33.0-36.5); MEAN CORPUSCULAR VOLUME 90.4 FL (78-98); MEAN PLATELET VOLUME 7.7 FL (7.4-10.4); MONOCYTES # (AUTO) 0.6 X10'3 (0-0.9); MONOCYTES % (AUTO) 7.1 % (2-12); NEUTROPHILS # (AUTO) 4.8 X10'3 (1.8-7.7); NEUTROPHILS % (AUTO) 59.6 % (42-75); PLATELET COUNT 278 X10'3 (140-440); RED BLOOD COUNT 4.59 X10'6 (4.20-5.60); RED CELL DISTRIBUTION WIDTH 13.3 % (11.5-14.5); WHITE BLOOD COUNT 8.1 X10'3 (4.5-11.0)
[2022-09-15 12:42] LABS: ALANINE AMINOTRANSFERASE 19 U/L (12-78); ALBUMIN 3.7 G/DL (3.4-5.0); ALBUMIN/GLOBULIN RATIO 1.4 (1.1-1.5); ALKALINE PHOSPHATASE 109 IU/L (46-116); ANION GAP 8 (8-16); ASPARTATE AMINO TRANSFERASE 21 U/L (10-37); BILIRUBIN,TOTAL 0.5 MG/DL (0.1-1.0); BLOOD UREA NITROGEN 16 MG/DL (7-18); BUN/CREATININE RATIO 23.5 (6.6-38.0); CALCIUM 8.5 MG/DL (8.5-10.1); CHLORIDE 109 MMOL/L (99-107); CREATININE 0.68 MG/DL (0.40-0.90); GLUCOSE 124 MG/DL (70-104); MAGNESIUM 1.9 MG/DL (1.5-2.4); POTASSIUM 3.7 MMOL/L (3.5-5.1); SODIUM 143 MMOL/L (135-145); TOTAL PROTEIN 6.4 G/DL (6.4-8.2); eGFR 85 ML/MIN
[2022-09-15] MEDS ORDERED: iohexol 350MG/ML 100ml bottle IV ONE (15:43)
--- NOTE | 2022-09-15 15:53 | NUR ---
TO CT SCAN.
--- NOTE | 2022-09-15 17:50 | NUR ---
DR ZAMUDIO AT BEDSIDE.
[2022-09-15] MEDS ORDERED: morphine 2 MG/ML inj. syringe IV PRN ×2 (18:15)
[2022-09-15] MEDS ORDERED: magnesium hydroxide 30ml (MOM) UD suspension PO PRN (18:15)
[2022-09-15] MEDS ORDERED: ondansetron/PF 4mg/2ml inj IV PRN (18:15)
[2022-09-15] MEDS ORDERED: PERFLUTREN PROTEIN-A MICROSPHR (Optison) 0.22 MG/ML 3ML VIAL IV ONE (18:15)
[2022-09-15] MEDS ORDERED: mag hydrox/Alum hydrox/simeth 30ml oral suspension PO PRN (18:15)
[2022-09-15] MEDS ORDERED: hydrALAZINE 20mg/ml inj. IV PRN (18:25)
--- NOTE | 2022-09-15 18:57 | NUR ---
Spoke with Dr. Bo after noticing 1798 written on patient by previous ER doctor. 1798 written on wrong patient, order cancelled.
[2022-09-15] MEDS ORDERED: VALA500T41 PO (20:20)
[2022-09-15] MEDS: normal saline 1000ml 1,000 ML IV SCH (20:47)
[2022-09-15] MEDS: docusate sod 100mg capsule PO SCH (20:47)
[2022-09-15] MEDS: heparin, porcine 5000 units/ml vial SQ SCH (20:48)
[2022-09-15] MEDS ORDERED: pravastatin 40mg tablet PO ONE (21:30)
[2022-09-15] MEDS ORDERED: Melatonin 3mg tablet PO ONE (21:30)
[2022-09-15] MEDS ORDERED: traZODone 50mg tablet PO ONE (21:30)
[2022-09-15] MEDS ORDERED: metoprolol succinate 25mg (24-HOUR) SR. Tablet PO ONE (21:35)
[2022-09-15] MEDS ORDERED: METO25TA6 PO (22:06)
--- NOTE | 2022-09-15 22:15 | NUR ---
Per pharmacy, we do not have melatonin in 5mg tablets, advised it would be up to patient to take either 3mg or 6mg d/t home medication. Patient opted for 3mg tablet only. Patient at this time requested tylenol for left arm soreness she has been having all day, current nurse not made aware of this by patient prior to this. PRN tylenol given.
[2022-09-15] MEDS: acetaminophen 325mg tablet PO PRN (22:20)
[2022-09-15 23:15] VITALS: BP 107/66
[2022-09-16 03:52] VITALS: BP 127/60
[2022-09-16] MEDS: normal saline 1000ml 1,000 ML IV SCH (03:59)
[2022-09-16] MEDS: heparin, porcine 5000 units/ml vial SQ SCH (07:32)
[2022-09-16] MEDS: docusate sod 100mg capsule PO SCH (07:32)
[2022-09-16] MEDS: acetaminophen 325mg tablet PO PRN (07:33)
[2022-09-16 07:47] VITALS: BP 143/64
[2022-09-16] MEDS ORDERED: metoprolol tartrate 25mg tablet PO SCH (08:00)
[2022-09-16 12:00] VITALS: BP 142/72
--- NOTE | 2022-09-16 13:18 | NUR ---
Pt was DC'd as per 's orders. Pt was unhooked from all IV and tele. Education was provided at bedside to pt and spouse. All questions were answered and pt stated they were ready to leave. No medications were changed so no pharmacy contact was needed. Pt will schedule a follow up appointment. Pt walked down to lobby on their own with their spouse and stated they will take a private vehicle to home.
[2022-09-16] MEDS ORDERED: pravastatin 40mg tablet PO SCH (21:00)
== END 2022-09-16 13:13 | disposition home or self-care (01) ==
LOC: ER 12:06 → ED HOLD 18:14 → INTOOBSV 18:14 → PCU 3S 22:55
PROVIDERS: ADMIT Family Medicine; ATTEND Family Medicine
DX: R07.89 Other chest pain (principal); I10 Essential (primary) hypertension; E78.5 Hyperlipidemia, unspecified; I25.10 Atherosclerotic heart disease of native coronary artery without angina pectoris; K21.9 Gastro-esophageal reflux disease without esophagitis; F41.8 Other specified anxiety disorders; Z87.11 Personal history of peptic ulcer disease; Z90.710 Acquired absence of both cervix and uterus; Z79.899 Other long term (current) drug therapy; Z95.5 Presence of coronary angioplasty implant and graft; Z95.1 Presence of aortocoronary bypass graft
CPT/HCPCS: 36415; 71275; 74174; 80053; 83735; 83880; 84484; 85025; 87081; 93005; 93306; 96360; 96361; 96372; 99285; G0378; J1644; J3490; J7030; Q9967

== ENCOUNTER 2022-09-29 19:56 | Emergency (ER) | payer MEDICARE ==
[~2022-09-29] VITALS: Ht 162.6 cm; Wt 65.9 kg
[~2022-09-29 19:56] MED LIST changes: -METO-539 PO; +METO25TA6 PO; -VALA500T PO; +VALA500T41 PO
[2022-09-29 20:06] VITALS: BP 153/78
== END 2022-09-29 22:30 | disposition home or self-care (01) ==
LOC: ER 19:57
DX: S60.455A Superficial foreign body of left ring finger, initial encounter (principal); I11.0 Hypertensive heart disease with heart failure; K21.9 Gastro-esophageal reflux disease without esophagitis; F31.9 Bipolar disorder, unspecified; Z79.899 Other long term (current) drug therapy; Z88.5 Allergy status to narcotic agent; X58.XXXA Exposure to other specified factors, initial encounter; Y93.89 Activity, other specified; Y92.89 Other specified places as the place of occurrence of the external cause; Y99.8 Other external cause status
CPT/HCPCS: 99281

== ENCOUNTER 2023-06-14 09:05 | Emergency (ER) | payer MEDICARE ==
[~2023-06-14] VITALS: Ht 162.6 cm; Wt 67.5 kg
[2023-06-14 09:21] VITALS: BP 170/64; PULSE 66; TEMP 98; O2SAT 97
--- NOTE | 2023-06-14 09:31 | NUR ---
PROVIDER SAW PT IN TRIAGE.
[2023-06-14] MEDS ORDERED: CELE-193 PO (10:27)
[2023-06-14] MEDS ORDERED: CYCL-1 PO (10:27)
[2023-06-14] MEDS ORDERED: ketorolac tromethamine 15mg/ml inj. IM ONE (10:30)
[2023-06-14 17:08] VITALS: RESP 18
--- NOTE | 2023-06-14 17:35 | NUR ---
I have reviewed and agree with all interventions, assessments performed and documented by Molly Patrick LVN
== END 2023-06-14 17:38 | disposition home or self-care (01) ==
LOC: ER 09:05
DX: S39.011A Strain of muscle, fascia and tendon of abdomen, initial encounter (principal); I10 Essential (primary) hypertension; K21.9 Gastro-esophageal reflux disease without esophagitis; Z88.5 Allergy status to narcotic agent; Z79.82 Long term (current) use of aspirin; Z79.899 Other long term (current) drug therapy; Z90.710 Acquired absence of both cervix and uterus; W19.XXXA Unspecified fall, initial encounter; Y93.89 Activity, other specified; Y92.89 Other specified places as the place of occurrence of the external cause; Y99.8 Other external cause status
CPT/HCPCS: 96372; 99284; J1885

== ENCOUNTER 2024-01-16 14:16 | Observation (INO) | payer MEDICARE, MEDICAID ==
[~2024-01-16] VITALS: Ht 162.6 cm; Wt 66.9 kg
[~2024-01-16 14:16] MED LIST changes: +CYCL-1 PO
[2024-01-16] MEDS: diazepam inj 5 MG/ML inj. IV ONE (20:47)
[2024-01-16] MEDS: ketorolac tromethamine 15mg/ml inj. IV ONE (20:48)
[2024-01-16] MEDS ORDERED: potassium Cl 40MEQ/1/2NS 520ml 520 ML IV PRN (21:30)
[2024-01-16] MEDS ORDERED: mag hydrox/Alum hydrox/simeth 30ml oral suspension PO PRN (21:30)
[2024-01-16] MEDS ORDERED: magnesium 4gm in 100ml NS 100 ML IV PRN (21:30)
[2024-01-16] MEDS ORDERED: ondansetron/PF 4mg/2ml inj IV PRN (21:30)
[2024-01-16] MEDS ORDERED: magnesium Cl slow-release 64mg tablet PO PRN (21:30)
[2024-01-16] MEDS ORDERED: potassium Cl 20 mEq SR tablet PO PRN ×2 (21:30)
[2024-01-16] MEDS ORDERED: HYDROcodone/acetaminophen 5mg/325mg tablet PO PRN (21:30)
[2024-01-16] MEDS ORDERED: magnesium hydroxide 30ml (MOM) UD suspension PO PRN (21:30)
[2024-01-16] MEDS ORDERED: acetaminophen 325mg tablet PO PRN ×2 (21:30)
[2024-01-16] MEDS ORDERED: ketorolac trometh. 30mg/ml inj. IV PRN (21:30)
[2024-01-16] MEDS ORDERED: magnesium 2GM in 50ml NS 50 ML IV PRN (21:30)
[2024-01-17 03:08] LABS: BASOPHILS # (AUTO) 0.1 X10'3 (0-0.2); BASOPHILS % (AUTO) 0.8 % (0-1); EOSINOPHILS # (AUTO) 0.3 X10'3 (0-0.9); EOSINOPHILS % (AUTO) 4.9 % (0-6); HEMATOCRIT 38.7 % (35.0-45.0); HEMOGLOBIN 13.6 g/dl (12.0-16.0); LYMPHOCYTES # (AUTO) 1.8 X10'3 (1.1-4.8); LYMPHOCYTES % (AUTO) 27.4 % (21-51); MEAN CORPUSCULAR HEMOGLOBIN 31.6 PG (27.0-31.0); MEAN CORPUSCULAR HGB CONC 35.1 g/dL (33.0-36.5); MONOCYTES # (AUTO) 0.5 X10'3 (0-0.9); MONOCYTES % (AUTO) 8.2 % (2-12); NEUTROPHILS # (AUTO) 3.9 X10'3 (1.8-7.7); NEUTROPHILS % (AUTO) 58.7 % (42-75); PLATELET COUNT 261 X10'3 (140-440); WHITE BLOOD COUNT 6.7 X10'3 (4.5-11.0)
[2024-01-17 03:22] LABS: ALANINE AMINOTRANSFERASE 23 U/L (12-78); ALBUMIN 3.2 G/DL (3.4-5.0); ALKALINE PHOSPHATASE 90 IU/L (46-116); ANION GAP 8 (8-16); ASPARTATE AMINO TRANSFERASE 26 U/L (10-37); BILIRUBIN,TOTAL 0.6 MG/DL (0.1-1.0); BLOOD UREA NITROGEN 22 MG/DL (7-18); BUN/CREATININE RATIO 35.5 (10.0-20.0); CALCIUM 8.8 MG/DL (8.5-10.1); CHLORIDE 107 MMOL/L (99-107); CREATININE 0.62 MG/DL (0.40-0.90); GLUCOSE 95 MG/DL (70-104); PHOSPHORUS 4.9 MG/DL (2.3-4.5); POTASSIUM 3.9 MMOL/L (3.5-5.1); SODIUM 141 MMOL/L (135-145); TOTAL CARBON DIOXIDE 25.8 MMOL/L (24-32); TOTAL PROTEIN 6.5 G/DL (6.4-8.2); eCRCL 71 ML/MIN; eGFR > 90 ML/MIN
[2024-01-17] MEDS: K and/or MAG REPLACEMENT MC SCH (07:00)
[2024-01-17] MEDS: cyclobenzaprine 10mg tablet PO SCH (08:48)
[2024-01-17] MEDS: metoprolol tartrate 25mg tablet PO SCH (08:48)
[2024-01-17] MEDS: docusate sod 100mg capsule PO SCH (08:48)
[2024-01-17] MEDS: aspirin 81mg, enteric-coated 1 TAB TABLET.DR PO SCH (08:49)
[2024-01-17] MEDS: LIDOcaine 5% patch TP SCH (08:49)
[2024-01-17] MEDS: heparin, porcine 5000 units/ml vial SQ SCH (08:51)
[2024-01-17 11:45] VITALS: RESP 16; O2SAT 97
[2024-01-17 11:54] VITALS: BP 157/64; PULSE 67; RESP 16; TEMP 98.2; O2SAT 97
[2024-01-17 16:16] VITALS: O2SAT 97
[2024-01-17] MEDS ORDERED: LIDO700A47 TOP (16:52)
[2024-01-17] MEDS ORDERED: CYCL-1 PO (16:53)
[2024-01-17] MEDS ORDERED: pravastatin 40mg tablet PO SCH (21:00)
[2024-01-17] MEDS ORDERED: traZODone 50mg tablet PO SCH (21:00)
[2024-01-17] MEDS ORDERED: Melatonin 3mg tablet PO SCH (21:00)
== END 2024-01-17 17:16 | disposition home or self-care (01) ==
LOC: ER 14:17 → INTOOBSV 21:27 → ED HOLD 21:27 → SUR 3N 01-17 10:45 → UNDODISIN 01-17 17:16
PROVIDERS: ADMIT Internal Medicine Critical Care Medicine; ATTEND Internal Medicine
DX: S39.012A Strain of muscle, fascia and tendon of lower back, initial encounter (principal); M54.16 Radiculopathy, lumbar region; I25.10 Atherosclerotic heart disease of native coronary artery without angina pectoris; I10 Essential (primary) hypertension; R91.8 Other nonspecific abnormal finding of lung field; K21.9 Gastro-esophageal reflux disease without esophagitis; F41.8 Other specified anxiety disorders; Z79.899 Other long term (current) drug therapy; Z98.61 Coronary angioplasty status; Z87.11 Personal history of peptic ulcer disease; Z90.710 Acquired absence of both cervix and uterus; X58.XXXA Exposure to other specified factors, initial encounter; Y93.89 Activity, other specified; Y92.89 Other specified places as the place of occurrence of the external cause; Y99.8 Other external cause status
CPT/HCPCS: 64415; 72148; 80053; 83735; 84100; 96372; 96374; 97161; 99284; G0378; J3360; 36415; 85025; 87081; 96375; 97116; 97530; 99285; J1644; J1885